=== PATIENT | female | born 1980 | race Caucasian/White ===

== ENCOUNTER 2020-11-26 13:31 | Emergency (ER) | payer MEDICAID ==
[~2020-11-26] VITALS: Ht 154.9 cm; Wt 55.0 kg
[2020-11-26] MEDS ORDERED: OXYMETAZOLINE HCL NASAL SPRAY 15ML BOTHNSTRLS SCH (15:00)
[2020-11-26] MEDS ORDERED: IBUP-2028 MT (15:03)
[2020-11-26 15:20] VITALS: BP 127/77
== END 2020-11-26 15:22 | disposition home or self-care (01) ==
LOC: ER 13:31
DX: U07.1 COVID-19 (principal)
CPT/HCPCS: 99283; C9803; U0003; U0005